=== PATIENT | female | born 1990 | race Caucasian/White ===

== ENCOUNTER 2016-11-08 20:21 | Emergency (ER) | payer MEDICAID ==
[2016-11-08 22:26] LABS: APPEARANCE,URINE CLEAR; BILIRUBIN,URINE NEGATIVE (NEGATIVE); GLUCOSE, URINE 50 mg/dL (NEGATIVE); KETONES,URINE NEGATIVE (NEGATIVE); LEUKOCYTE ESTERASE,URINE NEGATIVE (NEGATIVE); NITRITE,URINE NEGATIVE (NEGATIVE); PROTEIN,URINE NEGATIVE (NEGATIVE); URINE SPECIFIC GRAVITY 1.009; UROBILINOGEN,URINE NEGATIVE mg/dL (<2.0)
--- NOTE | 2016-11-08 22:26 | RADIOLOGY REPORT (SQ) ---
EXAM DESCRIPTION: CHEST SINGLE VIEW COMPLETED DATE/TIME: 11/08/2016 10:13 pm REASON FOR STUDY: sob COMPARISON: None. EXAM PARAMETERS: NUMBER OF VIEWS: One view. TECHNIQUE: Single frontal radiographic view of the chest acquired. RADIATION DOSE: NA LIMITATIONS: None. FINDINGS: LUNGS AND PLEURA: No opacities, masses or pneumothorax. No pleural effusion. MEDIASTINUM AND HILAR STRUCTURES: No masses. Contour normal. HEART AND VASCULAR STRUCTURES: Heart normal in size. Normal vasculature. BONES: No acute findings. HARDWARE: EKG leads overlie the chest. OTHER: No other significant finding. IMPRESSION: NO ACUTE RADIOGRAPHIC FINDING IN THE CHEST. TECHNICAL DOCUMENTATION: JOB ID: [id number]
--- NOTE | 2016-11-08 22:38 | ER Document Report ---
ED General - General Chief Complaint: Dizziness Stated Complaint: DIZZINESS Time Seen by Provider: 11/08/16 21:29 Notes: Patient is a 26-year-old female with a history of sinus tachycardia, generally on propranolol for this who presents with concerns of lightheadedness and a low heart rate in her normal over the last 3 days. Patient reports a constant feeling of near-syncope that is particularly worse when she is standing. She has discontinued her propranolol as well as her alprazolam which she believes has moderately improved her symptoms although she also notes that she is worried her discontinuation of alprazolam may have triggered her symptoms. She has not seen a primary care doctor regarding today's concerns. Nothing seems to worsen her symptoms. No history of similar symptoms in the past. Does note some mild intermittent, stabbing chest pain over the diffuse chest wall but is not present at this time. Nothing improves or worsens that symptom. TRAVEL OUTSIDE OF THE [place] IN LAST 30 DAYS: No - Related Data Allergies/Adverse Reactions: Latex, Natural Rubber Allergy (Verified 11/08/16 23:06) Penicillins Allergy (Verified 11/08/16 23:06) Past Medical History - General Information source: Patient - Social History Smoking Status: Current Every Day Smoker Chew tobacco use (# tins/day): No Frequency of alcohol use: None Drug Abuse: None Lives with: Spouse/Significant other Family History: Reviewed & Not Pertinent Patient has suicidal ideation: No Patient has homicidal ideation: No Endocrine Medical History: Reports: Hx Diabetes Mellitus Type 1 Renal/ Medical History: Denies: Hx Peritoneal Dialysis Review of Systems - Review of Systems Notes: Constitutional: Negative for fever. HENT: Negative for sore throat. Eyes: Negative for visual changes. Cardiovascular: Positive for chest pain. Respiratory: Negative for shortness of breath. Gastrointestinal: Negative for abdominal pain, vomiting or diarrhea. Genitourinary: Negative for dysuria. Musculoskeletal: Negative for back pain. Skin: Negative for rash. Neurological: Negative for headaches, weakness or numbness. 10 point ROS negative except as marked above and in HPI. Physical Exam - Vital signs Vitals: Temp Pulse Resp BP Pulse Ox 98.2 F 76 20 115/76 98 11/08/16 20:46 11/08/16 20:46 11/08/16 20:46 11/08/16 20:46 11/08/16 20:46 Interpretation: Normal Notes: PHYSICAL EXAMINATION: GENERAL: Well-appearing, well-nourished and in no acute distress. HEAD: Atraumatic, normocephalic. EYES: Pupils equal round and reactive to light, extraocular movements intact, sclera anicteric, conjunctiva are normal. ENT: nares patent, oropharynx clear without exudates. Moist mucous membranes. NECK: Normal range of motion, supple without lymphadenopathy LUNGS: Breath sounds clear to auscultation bilaterally and equal. No wheezes rales or rhonchi. HEART: Regular rate and rhythm without murmurs ABDOMEN: Soft, nontender, normoactive bowel sounds. No guarding, no rebound. No masses appreciated. EXTREMITIES: Normal range of motion, no pitting or edema. No cyanosis. NEUROLOGICAL: No focal neurological deficits. Moves all extremities spontaneously and on command. PSYCH: Normal mood, normal affect. SKIN: Warm, Dry, normal turgor, no rashes or lesions noted. Course - Re-evaluation Re-evalutation: 11/08/16 23:07 Patient presents with symptoms of lightheadedness and near syncope stating that her heart rate is lower than normal although heart rate is within normal at this time. Patient has a history of sinus tachycardia and normally requiring propranolol which she has self discontinued the last 3 days due to her symptoms which I believe is appropriate and have encouraged her to continue. Patient is also stopped her Xanax abruptly which she does not take 3 times daily and this may also be contributing to some of her symptoms. I have encouraged her to continue monitoring her symptoms and have also encouraged her to not restart the Xanax as there is no indication for chronic alprazolam therapy. Chest x- ray was also obtained given patient's report of mild chest pain which is also noted to be normal. Urinalysis and urine tests are normal. I have encouraged the patient to follow-up with Dr. Abarca in clinic in the next several days and I provided her referral information. At this time will discharge with return precautions and follow-up recommendations. Verbal discharge instructions given a the bedside and opportunity for questions given. Medication warnings reviewed. Patient is in agreement with this plan and has verbalized understanding of return precautions and the need for primary care follow-up in the next 24-72 hours. - Vital Signs Vital signs: Temp Pulse Resp BP Pulse Ox 98.2 F 70 18 107/80 98 11/08/16 20:46 11/08/16 23:43 11/08/16 23:43 11/08/16 23:43 11/08/16 23:43 - Laboratory Laboratory results interpreted by me: 11/08/16 22:04 Urine Glucose (UA) 50 H Urine Blood MODERATE H - Diagnostic Test Radiology reviewed: Image reviewed, Reports reviewed Radiology results interpreted by me: 11/09/16 03:39 Chest x-ray: No acute infiltrate or pneumothorax Discharge - Discharge Clinical Impression: Lightheadedness Condition: Good Disposition: HOME, SELF-CARE Additional Instructions: Please follow-up with your primary care doctor or a 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 Return if you develop chest pain, shortness of breath, pass out, or have any other symptoms that are worrisome to you. Referrals: PAUL ABARCA MD [ACTIVE STAFF] - Follow up in 3-5 days
[2016-11-08 23:44] VITALS: BP 107/80
--- NOTE | 2016-11-09 06:03 | EKG REPORT ---
SEVERITY:- BORDERLINE ECG - SINUS RHYTHM BORDERLINE T ABNORMALITIES, ANTERIOR LEADS : Confirmed by: Maribel Chang MD 09-Nov-2016 06:02:51
== END 2016-11-08 23:43 | disposition home or self-care (01) ==
LOC: ER 20:21
DX: R55 Syncope and collapse (principal); R07.89 Other chest pain; R00.0 Tachycardia, unspecified; E10.9 Type 1 diabetes mellitus without complications; F17.200 Nicotine dependence, unspecified, uncomplicated; Z91.040 Latex allergy status; Z88.0 Allergy status to penicillin; Z91.14 Patient's other noncompliance with medication regimen
CPT/HCPCS: 71010; 81001; 81025; 93005; 93010; 99284

== ENCOUNTER 2017-03-13 20:10 | Emergency (ER) | payer MEDICAID ==
[2017-03-13 21:08] LABS: ABSOLUTE BASOPHILS # (AUTO) 0.1 10^3/uL (0.0-0.2); ABSOLUTE EOSINOPHILS # (AUTO) 0.3 10^3/uL (0.0-0.6); ABSOLUTE LYMPHOCYTES (AUTO) 1.9 10^3/uL (0.5-4.7); ABSOLUTE MONOCYTES (AUTO) 0.4 10^3/uL (0.1-1.4); ABSOLUTE NEUT (AUTO) 2.4 10^3/uL (1.7-8.2); BASOPHILS % (AUTO) 1.4 % (0-2); EOSINOPHILS % (AUTO) 5.7 % (0-6); HEMATOCRIT 37.3 % (36.0-47.0); HEMOGLOBIN 12.9 g/dL (12.0-15.5); HGB HCT DIFFERENCE 1.4; LYMPHOCYTES % (AUTO) 37.5 % (13-45); MEAN CORPUSCULAR HEMOGLOBIN 30.1 pg (27.0-33.4); MEAN CORPUSCULAR HGB CONC 34.5 g/dL (32.0-36.0); MEAN CORPUSCULAR VOLUME 87 fl (80-97); MONOCYTES % (AUTO) 8.3 % (3-13); RED BLOOD COUNT 4.27 10^6/uL (3.72-5.28); RED CELL DISTRIBUTION WIDTH 13.3 % (11.5-14.0); SEGMENTED NEUTROPHILS % (AUTO) 47.1 % (42-78); WHITE BLOOD COUNT 5.2 10^3/uL (4.0-10.5)
[2017-03-13] MEDS ORDERED: MAG HYDROX/AL HYDROX/SIMETH SUSP 30 ML UDCUP PO ONE (21:13)
[2017-03-13] MEDS ORDERED: LIDOCAINE 2% VISCOUS SOLN 20 ML UDCUP PO ONE (21:13)
[2017-03-13] MEDS ORDERED: METOCLOPRAMIDE HCL ORAL SOLN 10 MG/10 ML UDCUP PO ONE (21:13)
[2017-03-13 21:30] LABS: ALANINE AMINOTRANSFERASE 31 U/L (9-52); ALBUMIN 3.9 g/dL (3.5-5.0); ALKALINE PHOSPHATASE 77 U/L (38-126); ANION GAP 10 (5-19); ASPARTATE AMINO TRANSFERASE 18 U/L (14-36); BILIRUBIN,DIRECT 0.3 mg/dL (0.0-0.4); BILIRUBIN,TOTAL 0.9 mg/dL (0.2-1.3); BLOOD UREA NITROGEN 11 mg/dL (7-20); CALCIUM 9.8 mg/dL (8.4-10.2); CARBON DIOXIDE 30 mmol/L (22-30); CHLORIDE 102 mmol/L (98-107); GLUCOSE 168 mg/dL (75-110); LIPASE 103.3 U/L (23-300); POTASSIUM 4.1 mmol/L (3.6-5.0); SODIUM 142.2 mmol/L (137-145); TOTAL PROTEIN 6.5 g/dL (6.3-8.2)
--- NOTE | 2017-03-13 22:18 | RADIOLOGY REPORT (SQ) ---
EXAM DESCRIPTION: CHEST PA/LAT COMPLETED DATE/TIME: 03/13/2017 9:07 pm REASON FOR STUDY: cp COMPARISON: None. EXAM PARAMETERS: NUMBER OF VIEWS: two views TECHNIQUE: Digital Frontal and Lateral radiographic views of the chest acquired. RADIATION DOSE: NA LIMITATIONS: none FINDINGS: LUNGS AND PLEURA: No opacities, masses or pneumothorax. No pleural effusion. MEDIASTINUM AND HILAR STRUCTURES: No masses or contour abnormalities. HEART AND VASCULAR STRUCTURES: Heart normal size. No evidence for failure. BONES: No acute findings. HARDWARE: None in the chest. OTHER: No other significant finding. IMPRESSION: NO SIGNIFICANT RADIOGRAPHIC FINDING IN THE CHEST. TECHNICAL DOCUMENTATION: JOB ID: [id number] [id number] [employer]- All Rights Reserved
[2017-03-13 22:56] VITALS: BP 97/68
--- NOTE | 2017-03-13 23:09 | ER Document Report ---
ED General - General Chief Complaint: Chest Pain Stated Complaint: CHEST PAIN Time Seen by Provider: 03/13/17 20:28 TRAVEL OUTSIDE OF THE [place] IN LAST 30 DAYS: No - HPI Patient complains to provider of: Chest wall pressure Notes: Patient coming in for evaluation of chest wall pressure. Patient states chest wall pressure started just prior to arrival. Patient denies any shortness of breath nausea vomiting diarrhea fevers chills. Denies any trauma. Patient denies any recent travel denies any hormone replacement. Patient is resting currently upon my evaluation. Patient states no relief with Motrin Tylenol and Xanax at home. - Related Data Allergies/Adverse Reactions: Latex, Natural Rubber Allergy (Verified 11/08/16 23:06) Penicillins Allergy (Verified 11/08/16 23:06) Past Medical History - Social History Smoking Status: Never Smoker Chew tobacco use (# tins/day): No Frequency of alcohol use: None Drug Abuse: None Family History: Reviewed & Not Pertinent Patient has suicidal ideation: No Patient has homicidal ideation: No Endocrine Medical History: Reports: Hx Diabetes Mellitus Type 1 Renal/ Medical History: Denies: Hx Peritoneal Dialysis Review of Systems - Review of Systems Constitutional: No symptoms reported EENT: No symptoms reported Cardiovascular: Chest pain Respiratory: No symptoms reported Gastrointestinal: No symptoms reported Genitourinary: No symptoms reported Female Genitourinary: No symptoms reported Musculoskeletal: No symptoms reported Skin: No symptoms reported Hematologic/Lymphatic: No symptoms reported Neurological/Psychological: No symptoms reported Physical Exam - Vital signs Vitals: Temp Pulse Resp BP Pulse Ox 98.1 F 71 18 115/68 98 03/13/17 20:19 03/13/17 20:19 03/13/17 20:19 03/13/17 20:19 03/13/17 20:19 Interpretation: Normal - General General appearance: Appears well, Alert - HEENT Head: Normocephalic, Atraumatic Eyes: Normal Pupils: PERRL - Respiratory Respiratory status: No respiratory distress Chest status: Nontender Breath sounds: Normal Chest palpation: Normal - Cardiovascular Rhythm: Regular Heart sounds: Normal auscultation Murmur: No - Abdominal Inspection: Normal Distension: No distension Bowel sounds: Normal Tenderness: Nontender Organomegaly: No organomegaly - Back Back: Normal, Nontender - Extremities General upper extremity: Normal inspection, Nontender, Normal color, Normal ROM , Normal temperature General lower extremity: Normal inspection, Nontender, Normal color, Normal ROM , Normal temperature, Normal weight bearing. No: Kristian's sign - Neurological Neuro grossly intact: Yes Cognition: Normal Orientation: AAOx4 Mike Coma Scale Eye Opening: Spontaneous Mike Coma Scale Verbal: Oriented Mike Coma Scale Motor: Obeys Commands Mike Coma Scale Total: 15 Speech: Normal Motor strength normal: LUE, RUE, LLE, RLE Sensory: Normal - Psychological Associated symptoms: Normal affect, Normal mood - Skin Skin Temperature: Warm Skin Moisture: Dry Skin Color: Normal Course - Re-evaluation Re-evalutation: 03/13/17 23:42 The patient has atypical chest pain as the patient's chest pain is not suggestive of pulmonary embolus, cardiac ischemia, aortic dissection, or other serious etiology. Given the extremely low risk of these diagnoses further testing and evaluation for these possibilities does not appear to be indicated at this time. The patient has been instructed to return if the symptoms worsen or change in any way. - Vital Signs Vital signs: Temp Pulse Resp BP Pulse Ox 98.1 F 71 13 97/68 L 97 03/13/17 20:19 03/13/17 20:19 03/13/17 22:01 03/13/17 22:00 03/13/17 22:01 - Laboratory Result Diagrams: 03/13/17 20:55 03/13/17 20:55 Laboratory results interpreted by me: 03/13/17 20:55 Glucose 168 H Discharge - Discharge Clinical Impression: Chest wall pain Condition: Good Disposition: HOME, SELF-CARE Instructions: Anti-Inflammatory Medication ([facility]), Chest Wall Pain ([facility]) Additional Instructions: Your laboratory studies not show any significant pathology. Please follow-up with your primary care provider please continue to take Tylenol Motrin. Return to the ER symptoms worsen. Referrals: NANDA ELLIS MD [Primary Care Provider] - Follow up as needed
--- NOTE | 2017-03-18 06:08 | EKG REPORT ---
SEVERITY:- BORDERLINE ECG - SINUS RHYTHM BORDERLINE T ABNORMALITIES, ANTERIOR LEADS : Confirmed by: Maribel Chang MD 18-Mar-2017 06:08:31
== END 2017-03-13 22:50 | disposition home or self-care (01) ==
LOC: ER 20:10
DX: R07.89 Other chest pain (principal)
CPT/HCPCS: 93005; 99285; 36415; 84702; 83690; 85025; 80053; 84484; 85379; 71020; 93010; J3490 ×3

== ENCOUNTER 2017-04-26 16:12 | Emergency (ER) | payer OTHER, MEDICAID ==
[2017-04-26] MEDS ORDERED: KETOROLAC TROMETHAMINE 60 MG/2 ML SDV IM ONE (19:34)
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
[2017-04-26] MEDS ORDERED: DIAZEPAM 5 MG TABLET PO ONE (20:32)
[2017-04-26 21:05] VITALS: BP 98/72
== END 2017-04-26 21:06 | disposition home or self-care (01) ==
LOC: ER 16:12
DX: R68.84 Jaw pain (principal); V49.59XA Passenger injured in collision with other motor vehicles in traffic accident, initial encounter; Z88.0 Allergy status to penicillin; Z91.040 Latex allergy status; Z90.710 Acquired absence of both cervix and uterus
CPT/HCPCS: 70110; 99283

== ENCOUNTER 2018-01-13 15:13 | Emergency (ER) | payer MEDICAID ==
[2018-01-13 15:40] VITALS: BP 98/66
[2018-01-13] MEDS ORDERED: ONDANSETRON HCL INJ/PF 4 MG/2 ML SDV IV ONE (16:49)
[2018-01-13] MEDS ORDERED: NORMAL SALINE 1000 ML 1,000 ML IV ONE (16:49)
[2018-01-13 17:42] LABS: ABSOLUTE BASOPHILS # (AUTO) 0.1 10^3/uL (0.0-0.2); ABSOLUTE EOSINOPHILS # (AUTO) 0.4 10^3/uL (0.0-0.6); ABSOLUTE MONOCYTES (AUTO) 0.4 10^3/uL (0.1-1.4); ABSOLUTE NEUT (AUTO) 2.9 10^3/uL (1.7-8.2); APPEARANCE,URINE CLEAR; BASOPHILS % (AUTO) 0.9 % (0-2); BILIRUBIN,URINE NEGATIVE (NEGATIVE); COLOR,URINE YELLOW; EOSINOPHILS % (AUTO) 6.7 % (0-6); GLUCOSE, URINE NEGATIVE (NEGATIVE); HEMATOCRIT 42.3 % (36.0-47.0); HEMOGLOBIN 14.5 g/dL (12.0-15.5); KETONES,URINE NEGATIVE (NEGATIVE); LEUKOCYTE ESTERASE,URINE NEGATIVE (NEGATIVE); LYMPHOCYTES % (AUTO) 35.5 % (13-45); MEAN CORPUSCULAR HGB CONC 34.3 g/dL (32.0-36.0); MEAN CORPUSCULAR VOLUME 90 fl (80-97); MONOCYTES % (AUTO) 6.8 % (3-13); NITRITE,URINE NEGATIVE (NEGATIVE); PLATELET COUNT 272 10^3/uL (150-450); PROTEIN,URINE NEGATIVE (NEGATIVE); RED BLOOD COUNT 4.69 10^6/uL (3.72-5.28); RED CELL DISTRIBUTION WIDTH 13.2 % (11.5-14.0); SEGMENTED NEUTROPHILS % (AUTO) 50.1 % (42-78); TOTAL CELLS COUNTED % (AUTO) 100 %; URINE SPECIFIC GRAVITY 1.012; WHITE BLOOD COUNT 5.7 10^3/uL (4.0-10.5)
[2018-01-13 18:00] LABS: ALANINE AMINOTRANSFERASE 39 U/L (9-52); ALBUMIN 4.4 g/dL (3.5-5.0); ALKALINE PHOSPHATASE 57 U/L (38-126); ANION GAP 7 (5-19); ASPARTATE AMINO TRANSFERASE 37 U/L (14-36); BILIRUBIN,DIRECT 0.5 mg/dL (0.0-0.4); BILIRUBIN,TOTAL 1.3 mg/dL (0.2-1.3); BLOOD UREA NITROGEN 10 mg/dL (7-20); CARBON DIOXIDE 30 mmol/L (22-30); CHLORIDE 100 mmol/L (98-107); GLUCOSE 129 mg/dL (75-110); LIPASE 79.8 U/L (23-300); POTASSIUM 4.4 mmol/L (3.6-5.0); SODIUM 137.3 mmol/L (137-145); TOTAL PROTEIN 7.5 g/dL (6.3-8.2)
--- NOTE | 2018-01-13 18:54 | RADIOLOGY REPORT (SQ) ---
EXAM DESCRIPTION: U/S ABDOMEN LIMITED W/O DOP COMPLETED DATE/TIME: 01/13/2018 6:44 pm REASON FOR STUDY: ruq pain COMPARISON: None. TECHNIQUE: Dynamic and static grayscale images acquired of the right upper quadrant and recorded on PACS. Additional selected color Doppler and spectral images recorded. LIMITATIONS: Study limited due to acoustical interference from fat or from air in the bowel. FINDINGS: PANCREAS: Parts or all of the pancreas poorly seen secondary to acoustical interference fr om fat or from air in the bowel. LIVER: Echotexture is coarse with increased echogenicity consistent with fatty infiltration. No mass es. LIVER VASCULATURE: Normal directional flow of the main portal vein and hepatic veins. GALLBLADDER: No stones. Normal wall thickness. No pericholecystic fluid. ULTRASOUND-DETECTED SABILLON'S SIGN: Negative. INTRAHEPATIC DUCTS AND COMMON DUCT: CBD and intrahepatic ducts normal caliber. No filling defects. INFERIOR VENA CAVA: Normal flow. AORTA: No aneurysm. RIGHT KIDNEY: Normal size. Normal echogenicity. No solid or suspicious masses. No hydronephrosis. No calcifications. PERITONEAL CAVITY AND RIGHT PLEURAL SPACE: No ascites or effusions. OTHER: No other significant finding. IMPRESSION: FATTY LIVER. PANCREAS PARTIALLY OR COMPLETELY OBSCURED. OTHERWISE NORMAL RIGHT UPPER CHRISTINA DRANT ULTRASOUND. TECHNICAL DOCUMENTATION: JOB ID: [id number] [employer]- All Rights Reserved Reading location - IP/workstation name: [email or web address]
--- NOTE | 2018-01-13 19:04 | ER Document Report ---
ED General - General Chief Complaint: Abdominal Pain Stated Complaint: BACK AND SHOULDER PAIN Time Seen by Provider: 01/13/18 16:45 TRAVEL OUTSIDE OF THE [place] IN LAST 30 DAYS: No - HPI Patient complains to provider of: Right upper quadrant abdominal pain shoulder pain Notes: Patient coming in for right upper quadrant abdominal pain shoulder pain slight nausea no vomiting ongoing for last few days. Patient is states and associated with any food. Patient otherwise resting comfortably upon my evaluation denies any fevers chills diarrhea denies any trauma. - Related Data Allergies/Adverse Reactions: amoxicillin Allergy (Verified 01/13/18 15:16) Latex, Natural Rubber Allergy (Verified 01/13/18 15:16) Penicillins Allergy (Verified 01/13/18 15:16) Past Medical History - Social History Smoking Status: Current Some Day Smoker Frequency of alcohol use: None Drug Abuse: None Family History: CAD, DM, Hyperlipidemia, Hypertension, Malignancy, Thyroid Disfunction. denies: COPD, CVA Patient has suicidal ideation: No Patient has homicidal ideation: No Endocrine Medical History: Reports: Hx Diabetes Mellitus Type 1 - with insulin pump Renal/ Medical History: Denies: Hx Peritoneal Dialysis GI Medical History: Reports: Hx Gastritis Past Surgical History: Reports: Hx Section, Hx Hysterectomy, Hx Tubal Ligation, Other - Esophageal repair - Immunizations Immunizations up to date: Yes Review of Systems - Review of Systems Constitutional: No symptoms reported EENT: No symptoms reported Cardiovascular: No symptoms reported Respiratory: No symptoms reported Gastrointestinal: Abdominal pain, Nausea, Vomiting Genitourinary: No symptoms reported Female Genitourinary: No symptoms reported Musculoskeletal: No symptoms reported Skin: No symptoms reported Hematologic/Lymphatic: No symptoms reported Neurological/Psychological: No symptoms reported -: Yes All other systems reviewed and negative Physical Exam - Vital signs Vitals: Temp Pulse Resp BP Pulse Ox 98.3 F 66 14 98/66 L 98 01/13/18 15:39 01/13/18 15:39 01/13/18 15:39 01/13/18 15:39 01/13/18 15:39 Interpretation: Normal - General General appearance: Appears well, Alert - HEENT Head: Normocephalic, Atraumatic Eyes: Normal Pupils: PERRL - Respiratory Respiratory status: No respiratory distress Chest status: Nontender Breath sounds: Normal Chest palpation: Normal - Cardiovascular Rhythm: Regular Heart sounds: Normal auscultation Murmur: No - Abdominal Inspection: Normal Distension: No distension Bowel sounds: Normal Tenderness: Nontender Organomegaly: No organomegaly - Back Back: Normal, Nontender - Extremities General upper extremity: Normal inspection, Nontender, Normal color, Normal ROM , Normal temperature General lower extremity: Normal inspection, Nontender, Normal color, Normal ROM , Normal temperature, Normal weight bearing. No: Kristian's sign - Neurological Neuro grossly intact: Yes Cognition: Normal Orientation: AAOx4 Mike Coma Scale Eye Opening: Spontaneous Mike Coma Scale Verbal: Oriented [place] Coma Scale Motor: Obeys Commands [place] Coma Scale Total: 15 Speech: Normal Motor strength normal: LUE, RUE, LLE, RLE Sensory: Normal - Psychological Associated symptoms: Normal affect, Normal mood - Skin Skin Temperature: Warm Skin Moisture: Dry Skin Color: Normal Course - Re-evaluation Re-evalutation: 01/13/18 20:37 The patient presents with abdominal pain without signs of peritonitis or other life-threatening or serious etiology. The patient appears stable for discharge and has been instructed to return immediately if the symptoms worsen in any way , or in 8-12hr if not improved for re-evaluation. The patient has been instructed to return if the symptoms worsen or change in any way. Ultrasounds negative possibly gastritis duodenitis patient was started on Bentyl Zofran and omeprazole patient was encouraged follow-up PCP - Vital Signs Vital signs: Temp Pulse Resp BP Pulse Ox 98.3 F 66 14 98/66 L 98 01/13/18 15:39 01/13/18 15:39 01/13/18 15:39 01/13/18 15:39 01/13/18 15:39 - Laboratory Result Diagrams: 01/13/18 17:10 01/13/18 17:10 Laboratory results interpreted by me: 01/13/18 01/13/18 01/13/18 17:10 17:10 17:10 Eosinophils % 6.7 H Glucose 129 H Direct Bilirubin 0.5 H AST 37 H Urine Urobilinogen 2.0 H Discharge - Discharge Clinical Impression: Upper abdominal pain Condition: Good Disposition: HOME, SELF-CARE Instructions: Abdominal Pain ([facility]) Additional Instructions: Your laboratory studies today ultrasound not show any critical pathology for your symptoms. I do believe the area of the pain may be related to underlying gastritis or inflammation of her stomach or the last part of your stomach called the duodenum. We will start you on medication to help treat this omeprazole continue home with nausea medication and pain medication Zofran and Bentyl. Recommend following up with your primary care physician return to ER symptoms worsen. Would recommend a clear liquid diet for the next 12 hours then bland diet consisting of starchy foods such as toast cereal rice avoiding foods that have excess fat grease or oil Prescriptions: Dicyclomine HCl [Bentyl 20 mg Tablet] 20 mg PO QID #30 tablet Omeprazole 20 mg PO DAILY #30 capsule. Ondansetron [Zofran Odt] 4 mg PO Q6 PRN #30 tab.rapdis PRN Reason: For Nausea/Vomiting Forms: Return to Work Referrals: BILLY IRVIN FNP-C [NO LOCAL MD] - Follow up as needed
== END 2018-01-13 19:20 | disposition home or self-care (01) ==
LOC: ER 15:13
DX: R10.11 Right upper quadrant pain (principal); R11.0 Nausea; F17.200 Nicotine dependence, unspecified, uncomplicated; E10.9 Type 1 diabetes mellitus without complications; Z96.41 Presence of insulin pump (external) (internal); Z91.040 Latex allergy status; Z88.0 Allergy status to penicillin; Z90.710 Acquired absence of both cervix and uterus
CPT/HCPCS: 99284; 96361; 96374; 36415; 83690; 85025; 81025; 80053; 81001; 76705; J2405

== ENCOUNTER 2019-11-22 12:49 | Emergency (ER) | payer MEDICAID | END 2019-11-22 14:00 | disposition left against medical advice (07) | LOC: ER 12:49 | DX: Z53.21 Procedure and treatment not carried out due to patient leaving prior to being seen by health care provider (principal) ==